=== PATIENT | male | born 1930 | race Caucasian/White ===

== ENCOUNTER → 2016-10-09 | Outpatient (CLI) | payer MEDICARE ==
[~2016-10-09] MED LIST: ASA 81MG; B12100 MC1; CALCIUM + VITA1 EAC2 PO; CALCIUM 600MG+D1 TAB; CENTRUM CARDIO; CENTRUM SILVER1 EACH PO; CINNAMON500 MG; CIPRO500 MG PO; CRANBERRY FRUIT; D-31000 IU; DAYPRO600 M1 PO; E-200200 UNIT PO; E400400 IU; ELIQUIS5 M1 PO; FENOFIBRATE MI134 MG PO; FEOSOL300 MG PO; FISH OIL CONC1000 M2 PO; FLOMAX0.4 MG PO; FOLGARD TABLET1 EACH PO; FUROSEMIDE40 MG PO; GABAPENTIN300 MG PO; GLIPIZIDE5 MG PO; KEFLEX500 MG PO; KLOR-CON M2020 ME1 PO; LASIX20 MG PO; LEVOTHYROXINE0.05 MG PO; LIPITOR80 MG; Lopressor25 MG PO; Lotrimin 1%15 GM T; MASON NATURAL500 MG PO; METFORMIN500 MG; METFORMIN500 MG PO; MICRO-K 1010 MEQ PO; NEURONTIN300 MG PO; NEURONTIN600 MG; NEURONTIN600 MG PO; NORCO 325 MG-51 TAB PO; OMEGA 3 120 MG-1 CAP; Percocet 325 MG1 TAB PO; SEA OMEGA 30 121 SGL; SYNTHROID,LEVO25 MCG PO; TOPROL XL50 MG; TRI COR; TYLENOL WITH CO1 TA1 PO; ULTRAM50 MG PO; VICODIN 5/500 505 MG PO; VICODIN 500 MG-1 TAB PO; VITAMIN C500 M6 PO; VITAMIN C500 MG; VITAMIN E200 UNI4 PO; ZITHROMAX Z PA250 MG PO; [UNRECOGNIZED DRUG - OTHER]; [UNRECOGNIZED DRUG - OTHER]
== END | disposition home or self-care (01) ==
LOC: US 11:15
DX: N39.0 Urinary tract infection, site not specified (principal)

== ENCOUNTER → 2017-02-26 | Outpatient (CLI) | payer MEDICARE ==
[2017-02-26 11:04] LABS: BASO % 0.3 % (0.0-1.0); EOS # 0.2 10*3/uL (0.0-0.4); EOS % 2.9 % (1.0-4.0); HEMATOCRIT 37.6 % (42.0-52.0); HEMOGLOBIN 12.1 g/dl (14.0-18.0); LYMPH # 1.6 10*3/uL (1.3-4.4); LYMPH % 27.9 % (27.0-41.0); MEAN CELL VOLUME 84.9 fl (80.0-94.0); MEAN CORPUSCULAR HGB 27.3 pg (27.0-31.0); MEAN CORPUSCULAR HGB CONC 32.2 g/dl (33.0-37.0); MEAN PLATELET VOLUME 8.4 fl (9.6-12.3); MONO # 0.7 10*3/uL (0.1-1.0); MONO % 12.1 % (3.0-9.0); NEUT # 3.3 10*3/uL (2.3-7.9); NEUT % 56.6 % (47.0-73.0); PLATELET COUNT AUTOMATED 211 10*3/uL (130-400); RED BLOOD COUNT 4.43 10*6/uL (4.50-5.90); RED CELL DISTRI WIDTH 14.9 % (0-14.5); WHITE BLOOD COUNT 5.9 10*3/uL (4.8-10.8)
[2017-02-26 11:31] LABS: ALBUMIN 3.5 gm/dl (3.1-4.5); ALKALINE PHOSPHATASE 130 U/L (45-117); BILIRUBIN, TOTAL 0.6 mg/dl (0.2-1.0); BUN 21 mg/dl (7-24); CARBON DIOXIDE 26 mmol/L (21-32); CHLORIDE 103 mmol/L (98-107); CHOLESTEROL 107 mg/dL (<200); EST GLOM FILT AFRICAN AMERICAN > 60 ml/min; FREE T4 1.07 ng/dl (0.76-1.46); GLUCOSE 144 mg/dL (65-99); HDL CHOLESTEROL 43 mg/dl (40-60); LDL CHOLESTEROL 36 mg/dL (9-159); SGOT/AST 18 IU/L (3-35); SGPT/ALT 22 U/L (12-78); SODIUM 141 mmol/L (136-145); TOTAL PROTEIN 7.6 gm/dL (6.4-8.2); TRIGLYCERIDES 139 mg/dl (<150); VLDL CHOLESTEROL 28 mg/dL (6-40)
== END | disposition home or self-care (01) ==
LOC: LAB 10:45
PROVIDERS: Internal Medicine
DX: E11.42 Type 2 diabetes mellitus with diabetic polyneuropathy (principal); E11.22 Type 2 diabetes mellitus with diabetic chronic kidney disease; N18.9 Chronic kidney disease, unspecified; E03.9 Hypothyroidism, unspecified

== ENCOUNTER → 2017-04-24 | Outpatient (CLI) | payer MEDICARE | END | disposition home or self-care (01) | LOC: US 13:29 | DX: S32.2XXA Fracture of coccyx, initial encounter for closed fracture (principal); X58.XXXA Exposure to other specified factors, initial encounter; Y93.89 Activity, other specified; Y92.89 Other specified places as the place of occurrence of the external cause; Y99.8 Other external cause status ==

== ENCOUNTER → 2017-10-30 | Outpatient (CLI) | payer MEDICARE ==
[2017-10-30 17:02] LABS: BASO % 0.3 % (0.0-1.0); EOS # 0.2 10*3/uL (0.0-0.4); EOS % 2.3 % (1.0-4.0); HEMATOCRIT 37.6 % (42.0-52.0); HEMOGLOBIN 12.2 g/dl (14.0-18.0); LYMPH % 28.4 % (27.0-41.0); MEAN CELL VOLUME 88.5 fl (80.0-94.0); MEAN CORPUSCULAR HGB 28.7 pg (27.0-31.0); MEAN CORPUSCULAR HGB CONC 32.4 g/dl (33.0-37.0); MEAN PLATELET VOLUME 8.8 fl (9.6-12.3); MONO # 0.8 10*3/uL (0.1-1.0); NEUT % 57.9 % (47.0-73.0); PLATELET COUNT AUTOMATED 221 10*3/uL (130-400); RED BLOOD COUNT 4.25 10*6/uL (4.50-5.90); RED CELL DISTRI WIDTH 14.4 % (0-14.5)
[2017-10-30 17:20] LABS: ALBUMIN 3.4 gm/dl (3.1-4.5); ALKALINE PHOSPHATASE 134 U/L (45-117); BUN 22 mg/dl (7-24); CHLORIDE 105 mmol/L (98-107); CHOLESTEROL 113 mg/dL (<200); CREATININE 1.07 mg/dL (0.70-1.30); HDL CHOLESTEROL 44 mg/dl (40-60); LDL CHOLESTEROL 38 mg/dL (9-159); POTASSIUM 4.4 mmol/L (3.5-5.1); SGOT/AST 19 IU/L (3-35); SGPT/ALT 23 U/L (12-78); SODIUM 139 mmol/L (136-145); TOTAL PROTEIN 7.4 gm/dL (6.4-8.2); TRIGLYCERIDES 154 mg/dl (<150); VLDL CHOLESTEROL 31 mg/dL (6-40)
== END | disposition home or self-care (01) ==
LOC: LAB 16:26
PROVIDERS: Internal Medicine
DX: E11.42 Type 2 diabetes mellitus with diabetic polyneuropathy (principal); E03.9 Hypothyroidism, unspecified; E78.00 Pure hypercholesterolemia, unspecified; R50.9 Fever, unspecified

== ENCOUNTER → 2017-11-06 | Outpatient (CLI) | payer MEDICARE | END | disposition home or self-care (01) | LOC: CARD 12:56 | DX: I25.10 Atherosclerotic heart disease of native coronary artery without angina pectoris (principal) ==

== ENCOUNTER → 2017-12-24 | Outpatient (CLI) | payer MEDICARE | END | disposition home or self-care (01) | LOC: CARD 00:29 | DX: I48.0 Paroxysmal atrial fibrillation (principal) ==

== ENCOUNTER → 2018-02-11 | Outpatient (CLI) | payer MEDICARE ==
[2018-02-11 16:46] LABS: INTERNATIONAL NORM RATIO 3.1 (2.0-3.5)
== END | disposition home or self-care (01) ==
LOC: LAB 01:16
PROVIDERS: Internal Medicine
DX: I48.2 Chronic atrial fibrillation (principal)

== ENCOUNTER → 2018-02-18 | Outpatient (CLI) | payer MEDICARE ==
[2018-02-18 16:59] LABS: INTERNATIONAL NORM RATIO 1.7 (2.0-3.5)
== END | disposition home or self-care (01) ==
LOC: LAB 16:25
PROVIDERS: Internal Medicine
DX: I48.2 Chronic atrial fibrillation (principal)

== ENCOUNTER 2018-03-10 20:36 | Emergency (ER) | payer MEDICARE ==
[~2018-03-10] VITALS: Ht 180.3 cm; Wt 99.8 kg
[2018-03-10 20:58] LABS: BASO % 0.3 % (0.0-1.0); EOS # 0.2 10*3/uL (0.0-0.4); HEMATOCRIT 39.3 % (42.0-52.0); HEMOGLOBIN 12.5 g/dl (14.0-18.0); LYMPH # 1.9 10*3/uL (1.3-4.4); LYMPH % 29.2 % (27.0-41.0); MEAN CELL VOLUME 88.5 fl (80.0-94.0); MEAN CORPUSCULAR HGB 28.2 pg (27.0-31.0); MEAN CORPUSCULAR HGB CONC 31.8 g/dl (33.0-37.0); MEAN PLATELET VOLUME 8.6 fl (9.6-12.3); MONO # 0.9 10*3/uL (0.1-1.0); MONO % 13.5 % (3.0-9.0); NEUT # 3.4 10*3/uL (2.3-7.9); NEUT % 53.4 % (47.0-73.0); PLATELET COUNT AUTOMATED 221 10*3/uL (130-400); RED BLOOD COUNT 4.44 10*6/uL (4.50-5.90); RED CELL DISTRI WIDTH 14.6 % (0-14.5); WHITE BLOOD COUNT 6.4 10*3/uL (4.8-10.8)
[2018-03-10] MEDS ORDERED: GLUCOPHAGE1000 MG PO (21:04)
[2018-03-10] MEDS ORDERED: TYLENOL EXTRA500 M2 PO (21:05)
[2018-03-10] MEDS ORDERED: 'KLONOPIN0.5 MG PO (21:05)
[2018-03-10 21:07] LABS: ACT PARTIAL THROMBO TIME 34.1 SECONDS (20.8-31.5); INTERNATIONAL NORM RATIO 3.1 (2.0-3.5)
[2018-03-10 21:15] LABS: ALBUMIN 3.6 gm/dl (3.1-4.5); ALKALINE PHOSPHATASE 120 U/L (45-117); BUN 23 mg/dl (7-24); CHLORIDE 104 mmol/L (98-107); CREATININE 1.09 mg/dL (0.70-1.30); POTASSIUM 3.7 mmol/L (3.5-5.1); SGOT/AST 21 IU/L (3-35); SGPT/ALT 25 U/L (12-78); SODIUM 139 mmol/L (136-145); TOTAL PROTEIN 7.5 gm/dL (6.4-8.2)
[2018-03-10 21:17] LABS: TROPONIN I < 0.015 ng/ml (<0.045)
== END 2018-03-10 22:45 | disposition home or self-care (01) ==
LOC: ED
PROVIDERS: Student in an Organized Health Care Education/Training Program
DX: S09.8XXA Other specified injuries of head, initial encounter (principal); I48.91 Unspecified atrial fibrillation; I25.10 Atherosclerotic heart disease of native coronary artery without angina pectoris; E11.9 Type 2 diabetes mellitus without complications; E78.00 Pure hypercholesterolemia, unspecified; Z90.89 Acquired absence of other organs; Z88.2 Allergy status to sulfonamides; Z79.899 Other long term (current) drug therapy; Z79.84 Long term (current) use of oral hypoglycemic drugs; W07.XXXA Fall from chair, initial encounter; Y93.89 Activity, other specified; Y92.098 Other place in other non-institutional residence as the place of occurrence of the external cause; Y99.8 Other external cause status

== ENCOUNTER 2018-11-16 08:56 | Emergency (ER) | payer OTHER, MEDICARE ==
[~2018-11-16] VITALS: Ht 182.8 cm; Wt 102.1 kg
[~2018-11-16 08:56] MED LIST changes: +'KLONOPIN0.5 MG PO; +B12,B-12,B 12500 MC1 PO; +COUMADIN4 M2 PO; +GLUCOPHAGE1000 MG PO; -LEVOTHYROXINE0.05 MG PO; +LEVOTHYROXINE75 MCG PO; -LIPITOR80 MG; +LIPITOR80 MG PO; +TYLENOL EXTRA500 M2 PO; +VITAMIN D-32000 UNIT PO
== END 2018-11-16 10:19 | disposition home or self-care (01) ==
LOC: ED 08:56
DX: M79.604 Pain in right leg (principal); M25.512 Pain in left shoulder; G89.29 Other chronic pain; M13.851 Other specified arthritis, right hip; I48.91 Unspecified atrial fibrillation; I25.10 Atherosclerotic heart disease of native coronary artery without angina pectoris; E11.40 Type 2 diabetes mellitus with diabetic neuropathy, unspecified; E78.00 Pure hypercholesterolemia, unspecified; E03.9 Hypothyroidism, unspecified; Z88.2 Allergy status to sulfonamides; Z79.84 Long term (current) use of oral hypoglycemic drugs; Z79.899 Other long term (current) drug therapy; W19.XXXA Unspecified fall, initial encounter; Y93.89 Activity, other specified; Y92.129 Unspecified place in nursing home as the place of occurrence of the external cause; Y99.8 Other external cause status

== ENCOUNTER 2019-02-18 19:19 | Inpatient (IN) | payer OTHER, MEDICARE ==
[~2019-02-18] VITALS: Ht 190.5 cm; Wt 94.5 kg
--- NOTE | ~2019-02-18 | PR ---
[place], [place] PROGRESS NOTE [id number] UNIT #: [id number] ROOM: 422 DOCTOR: GIANFRANCO OROPEZA DO BIRTHDATE: [birth year] DOS: 02/25/2019 PULMONARY PROGRESS NOTE INTERVAL HISTORY: The patient does not respond to questioning. The patient still has a chest tube placed on at this time, the patient appears comfortable. Nurse stated that the patient had a wet cough yesterday. The patient had a swallow study and was deemed to aspirate all consistencies and was therefore n.p.o. at this time. OBJECTIVE: VITAL SIGNS: Temperature is 98.7 with a T-max last night of 101, pulse 90, respiratory rate 20, blood pressure 118/76, pulse ox 96% on 4 liters by nasal cannula. HEENT: Normocephalic, atraumatic. Eyes nonicteric. NECK: Supple, nontender, trachea midline. CARDIOVASCULAR: S1, S2 are audible. LUNGS: Decreased breath sounds in the left lower lung. There are no crackles bilaterally. ABDOMEN: Soft, nontender. Bowel sounds are present. EXTREMITIES: The patient has no acute edema. MUSCULOSKELETAL: No acute changes. CENTRAL NERVOUS SYSTEM: No focal deficits. IMAGING: The patient had a modified barium swallow that showed aspiration. Chest x-ray performed yesterday showed persistent opacification in the mid and lower part of the hemothorax. LABORATORY DATA: White count is 16.5 today, hemoglobin 11.0, hematocrit 35.2, platelet count 308. Chemistries: Sodium 141, potassium 3.3, chloride 99, carbon dioxide 31, BUN 17, creatinine 1.2. IMPRESSION: 1. Pleural fluid. At this time, no further drainage, most likely loculated pleural fluid would be suspected. 2. Therapeutic INR at this time. 3. Cytology of pleural fluid is still pending, possibly this is a malignant process, but we have not confirmed this yet. 4. At this time, after the patient's modified barium swallow, the patient has been made n.p.o. due to severe pharyngeal phase dysphagia with absent pharyngeal swallow. PLAN: At this time, we will plan to take the chest tube out this morning. Continue any other therapy from a pulmonology standpoint. Overall, the patient's condition is guarded. From a pulmonary standpoint, we agree with palliative care/hospice consult. [place], [place] PROGRESS NOTE NAME: MICKY VALLEJO UNIT #: [id number] ROOM: [facility] DOCTOR: GIANFRANCO OROPEZA DO BIRTHDATE: [birth year] Danny Oropeza DO EVA SALGUERO MD CM:PNKATHERINE [id number] GIANFRANCO OROPEZA DO 02/25/19 1005 interface
--- NOTE | ~2019-02-18 | CON ---
[place], [place] REPORT OF CONSULTATION NAME: MICKY VALLEJO UNIT #: [id number] ROOM: 422 DOCTOR: GIANFRANCO OROPEZA DO BIRTHDATE: [birth year] DOS: 02/19/2019 PULMONARY CONSULTATION NOTE REASON FOR CONSULTATION: Left pleural effusion. REQUESTED BY: Hospitalist. HISTORY OF PRESENT ILLNESS: An 88-year-old male with dementia, was brought from [facility] for supratherapeutic INR. The patient also had a small lump on his back. Upon imaging in the ER, the patient was found to have a very large left pleural effusion that chris out the entire lung. Any other symptoms are unobtainable due to the patient's underlying dementia. PAST MEDICAL HISTORY: 1. Atrial fibrillation. 2. Anxiety. 3. BPH. 4. CAD. 5. Dementia. 6. Diabetes. 7. Hyperlipidemia. 8. Hypothyroidism. 9. Normocytic anemia. PAST SURGICAL HISTORY: 1. History of heart catheterization. 2. History of tonsillectomy. SOCIAL HISTORY: The patient denies alcohol consumption, tobacco use or drug use. FAMILY HISTORY: His father from heart disease. His mother from breast cancer. ALLERGIES: THE PATIENT IS ALLERGIC TO SULFONAMIDE ANTIBIOTICS. HOME MEDICATIONS: Atorvastatin, vitamin D and B12, gabapentin, glipizide, levothyroxine, metformin, Flomax and warfarin. REVIEW OF SYSTEMS: Unable to be obtained secondary to the patient's underlying dementia. PHYSICAL EXAMINATION: VITAL SIGNS: The patient's temperature is 99.3, pulse rate is 78, respiratory rate 14, blood pressure 122/72, pulse ox 98% on 3 liters. HEENT: Normocephalic, atraumatic. NECK: Supple, nontender, trachea midline. HEART: S1, S2 audible. LUNGS: No breath sounds over left lung worthy. Right lung field is clear. [place], [place] REPORT OF CONSULTATION NAME: MICKY VALLEJO UNIT #: [id number] ROOM: 422 DOCTOR: GIANFRANCO OROPEZA DO BIRTHDATE: [birth year] ABDOMEN: Soft, nontender, nondistended. EXTREMITIES: 2+ edema, bilateral lower extremities. No clubbing, cyanosis or erythema. NEUROLOGIC: Unable to assess fully. The patient does not respond appropriately to questioning. LABORATORY DATA: CBC: White count 8.1, hemoglobin 11.5, hematocrit 37.7, platelet count is 272. Chemistries: Sodium 138, potassium 3.4, chloride 98, carbon dioxide 31, BUN 15, creatinine 0.9, calcium 8.2, phosphorus 3.2, magnesium 1.4, T-bili 0.3, AST 18, ALT 9, alkaline phosphatase 117, total protein 7.5, albumin 1.5. INR was greater than 9.3 at 1 o'clock yesterday; however, at 5:00 a.m. this morning when repeat labs were done, the patient's INR was 2.8. IMAGING: CT chest, abdomen and pelvis, massive left effusion with collapse of the left lower lobe and some mediastinal shift to the right. There is significant bladder wall thickening and nodularity. ASSESSMENTS: 1. Pleural effusion. 2. Atrial fibrillation. 3. Supratherapeutic INR, this is now within normal limits. 4. Coronary artery disease. 5. Dementia. 6. Diabetes with long-term insulin use. TREATMENT PLAN: The patient's was contacted and is amenable to chest tube on the left. We will call once more to just discuss risks, benefits with the as the patient is not able to sign consent for himself. Otherwise, the patient is stable. The patient does not need an emergent chest tube at this time. One will likely be placed in the near future to not only analyze the fluid but to also help with comfort and decrease the patient's shortness of breath. Supratherapeutic INR will be managed by the hospitalist. Any other changes will be based on progression of illness. Danny Oropeza DO [place], [place] REPORT OF CONSULTATION NAME: MICKY VALLEJO [place] UNIT #: [id number] ROOM: [facility] DOCTOR: GIANFRANCO OROPEZA DO BIRTHDATE: [birth year] EVA SALGUERO MD CM:CONSTR:REPORT OF CONSULTATION 0849 03/06/19 0833 interface
--- NOTE | ~2019-02-18 | PR ---
[place], [place] PROGRESS NOTE NAME: MICKY VALLEJO [facility] #: [id number] UNIT #: [id number] ROOM: 422 DOCTOR: GIANFRANCO OROPEZA DO BIRTHDATE: [birth year] DOS: 02/20/2019 PULMONARY PROGRESS NOTE INTERVAL HISTORY: The patient is confused and unable to answer questions at this time. Underlying dementia. REVIEW OF SYSTEMS: Unable to obtain due to the patient's dementia. OBJECTIVE: VITAL SIGNS: Temperature 98.1, pulse 96, respiratory rate 18, blood pressure is 101/60. The patient is 93% on 3 liters by nasal cannula. HEENT: Normocephalic, atraumatic. Eyes nonicteric. NECK: Supple, nontender, trachea midline. CARDIOVASCULAR: S1, S2 audible. LUNGS: Absent breath sounds on the left. Clear to auscultation on the right. ABDOMEN: Soft, nontender, bowel sounds present. EXTREMITIES: Without any acute edema, clubbing, or cyanosis. MUSCULOSKELETAL: No acute or obvious deformities. CRANIAL NERVOUS SYSTEM: Cannot be assessed. LABORATORY DATA: Of choice, the INR is 1.9 today, no other major deficits. The patient is malnourished with an albumin of 1.5. ASSESSMENT: 1. Coagulopathy, supratherapeutic INR, secondary to warfarin. The patient was given vitamin K at the [facility], which has worked quite nicely. 2. Large left pleural effusion. 3. Dementia. 4. 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 5. Type 2 diabetes. PLAN: At this time, we will plan to put a chest tube in potentially today. INR is within range at this time. The patient's spouse was contacted yesterday and she agrees with this plan. Her only concern is that the patient may not tolerate the chest tube and may want to remove or may pull it out himself due to his underlying dementia. We will proceed with a chest tube and if the patient does not tolerate Aleve, we will address the situation based on the patient's actions. No antibiotics at this time. Hold warfarin today. Thank you for allowing us to participate in the patient's care. Any additional changes will be based on progression of illness. Danny Oropeza DO [place], [place] PROGRESS NOTE NAME: MICKY VALLEJO UNIT #: [id number] ROOM: [facility] DOCTOR: GIANFRANCO OROPEZA DO BIRTHDATE: [birth year] EVA SALGUERO MD CM:BIJAN 08 GIANFRANCO OROPEZA DO 02/20/19 2245 interface
--- NOTE | ~2019-02-18 | PR ---
[place], [place] PROGRESS NOTE NAME: MICKY VALLEJO [facility] #: [id number] UNIT #: [id number] ROOM: 422 DOCTOR: NOEMY KNOX MD,EVA BIRTHDATE: [birth year] DOS: 02/24/2019 PULMONARY PROGRESS NOTE SUBJECTIVE: The patient was seen and examined with [id number] encounter. History was confirmed. Labs were reviewed. Physical examination was performed. Assessment and management of today's note was personally completed. The patient remains in the hospital. The patient has a chest tube in place. He has not been noted any ongoing acute respiratory complaints at the present time. He appears to be comfortable. He has not been noted with any chest pain. The patient does not have any verbal communication. Chest tube yesterday was corrected for this patient again, but there was no fluid drainage noted further after that. OBJECTIVE: VITAL SIGNS: Noted as temperature normal, respiratory rate 20, heart rate 101, blood pressure 117/72. Pulse oxygen saturation was recorded as 98% saturation on 3 liters nasal cannula. HEENT: Shows head was atraumatic, eyes nonicterus. CARDIOVASCULAR: S1 and S2 audible. LUNGS: Decreased breath sounds in the left lower lung. There were no crackles. ABDOMEN: Soft, nontender. Bowel sounds present. EXTREMITIES: The patient was noted without any acute edema. MUSCULOSKELETAL: No acute change. CENTRAL NERVOUS SYSTEM: No focal deficit noted. The patient is noted to be awake and alert. LABORATORY AND DIAGNOSTIC DATA: CBC: WBC count 11.8, hemoglobin 10.1, platelet count 275,000. BMP this morning, glucose 151, BUN normal, creatinine normal, potassium 3.2. Chest x-ray that was done this morning shows left pleural fluid noted with pulmonary infiltrates. IMPRESSION: 1. Pleural fluid. At this time, no further drainage noted. Most likely, loculated pleural fluid would be suspected. 2. Therapeutic INR noted at the present time. Cytology of the pleural fluid is still pending and not available. Possibility of malignant process has been considered at this time, but cannot be confirmed as yet. PLAN OF MANAGEMENT: Continuation of the current therapy at the present time with chest tube remains in place. If the chest tube continues to show recurrent pleural fluid, chest tube might need to be removed. Continue other therapy, plan of management, care plan and treatment otherwise. Usual care. [place], [place] PROGRESS NOTE NAME: MICKY VALLEJO UNIT #: [id number] ROOM: 422 DOCTOR: EVA SCOTT MD BIRTHDATE: [birth year] EVA SALGUERO MD CM:PNTRANS [id number] EVA KNOX MD 02/25/19 0202 interface
--- NOTE | ~2019-02-18 | PROC NOTE ---
[place], [place] PROCEDURE NOTE NAME: [facility]KY VALLEJO [facility] #: [id number] UNIT #: [id number] ROOM: 422 DOCTOR: NOEMY KNOX MD,EVA BIRTHDATE: [birth year] DOS: 02/20/2019 PROCEDURE: Chest tube thoracostomy. The note done by the electromedical equipment repairer this morning for the patient's chest tube thoracostomy was personally supervised directly for the chest tube. DESCRIPTION OF PROCEDURE: A 20-[place] chest tube was inserted with the Seldinger technique into the right pleural space without any difficulty. The patient was noted with mildly hemorrhagic pleural fluid, which was noted from the chest tube. The initial drainage of the pleural fluid was done as 1200 mL. Chest tube was clamped, will be relieved to suction on gravity drainage in 30 minutes and then after that to be kept on the gravity drainage for 2 hours prior to starting on the suction. I believe the patient was noted with very large volume of the pleural fluid that will be drained because of the complete opacification of the left hemithorax. EVA SALGUERO MD CM:PROCNOTE:PROCEDURE NOTE [id number] EVA KNOX MD
--- NOTE | ~2019-02-18 | PR ---
[place], [place] PROGRESS NOTE NAME: MICKY VALLEJO [facility] #: [id number] UNIT #: [id number] ROOM: 422 DOCTOR: NEOMY KNOX MD,EVA BIRTHDATE: [birth year] DOS: 02/22/2019 PULMONARY PROGRESS NOTE SUBJECTIVE: The patient was noted comfortable at this time. His is present in the room with the patient. The chest tube remains on the left hemithorax and has been noted drainage of pleural fluid, 270 mL of pleural fluid drainage noted, which noted serosanguineous. He has not been noted in any acute distress this morning of assessment. The patient remains in the hospital at the present time. He is unable to give me any history by himself as well. OBJECTIVE: VITAL SIGNS: For the patient which were recorded showed the temperature noted as normal. The respiratory rate recorded as 18, heart rate 82, blood pressure 125/60-129/64. Pulse oxygen saturation recorded on 3 liters nasal cannula 100% saturation. HEENT: Examination shows head was atraumatic. Eyes nonicterus. NECK: Supple. CARDIOVASCULAR: S1, S2 is audible. LUNGS: The patient was noted with clear worthy on the right side. The left chest air entry of the lung was also improving. There were no crackles heard. ABDOMEN: Soft, nontender. Bowel sounds present. EXTREMITIES: No acute change. LABORATORY DATA: The patient's chest x-ray done this morning was reviewed, showed further improvement in the aeration in the lung was noted with a small area of infiltration in the left lower lung. The PT/INR noted 1.5, which is therapeutic. BMP this morning, normal BUN and creatinine. CBC this morning, WBC count 8.9, hemoglobin 9.5, hematocrit 29.5, platelet count 214,000. Culture of the pleural fluid noted as no bacterial growth. IMPRESSION: The patient who has been currently noted with stable respiratory status, pending cytology of pleural fluid, which is noted with exudative lymphocyte-predominant pleural fluid. Strong possibility of malignant pleural effusion. PLAN OF TREATMENT: No changes in plan of management. Further assessment has been discussed with the patient's spouse at this time. No change in the treatment will be necessary. Decision about the further medical management will be made after availability of the pleural fluid cytology report by next week. [place], [place] PROGRESS NOTE NAME: MICKY VALLEJO UNIT #: [id number] ROOM: 422 DOCTOR: EVA SCOTT MD BIRTHDATE: [birth year] EVA SALGUERO MD CM:PNTRANS [id number] EVA KNOX MD 02/22/19 2329 interface
--- NOTE | ~2019-02-18 | PR ---
[place], [place] PROGRESS NOTE NAME: MICKY VALLEJO [facility] #: [id number] UNIT #: [id number] ROOM: 422 DOCTOR: NOEMY KNOX MD,EVA BIRTHDATE: [birth year] DOS: 02/21/2019 PULMONARY PROGRESS NOTE SUBJECTIVE: The patient independently seen and examined in toce-gu-mvge encounter, history was confirmed. Physical examination was performed. The lab was reviewed. Assessment and management of today's note was personally completed. Note done by the medical equipment sales was approved as well. The patient was noted awake and alert. The patient does not have verbal communication because of history of dementia. The chest tube inserted yesterday successfully and noted large volume of pleural fluid drainage over 3000 mL of pleural fluid. Fluid noted hemorrhagic as well. He has not been noted any acute hemodynamic instability at the present time. PHYSICAL EXAMINATION: GENERAL: The patient is noted comfortable at this time, lying in the bed, noted awake and alert. VITAL SIGNS: Recorded normal temperature, respiratory rate 18, heart rate 86, blood pressure 123/84. Pulse oxygen saturation recorded as 99% saturation on 3 liters nasal cannula. HEENT: Shows head was atraumatic. Eyes nonicterus. NECK: Supple. CARDIOVASCULAR: S1, S2 is audible. LUNGS: The patient was noted improvement in air entry in the left lung, partially. There were no wheezing or crackles. ABDOMEN: Soft, nontender. EXTREMITIES: No acute edema. MUSCULOSKELETAL: No deformities. CENTRAL NERVOUS SYSTEM: Limited examination. The patient noted awake and alert. LABORATORY DATA: Reviewed from yesterday. The glucose noted in the pleural fluid 148. The pH of 7.37. LDH 238, cholesterol 58. Albumin 1.5, amylase of 60, triglycerides 42. Cell differential of the pleural fluid noted 617 WBC with 86% lymphocytes. The cytology of the pleural fluid was pending. CMP that was done this morning as BUN 25, creatinine 1.49, glucose 190. The PT/INR subtherapeutic. The CBC; WBC count 8.4, hemoglobin 11.1, hematocrit was noted as 35 with a platelet count 262,000. The chest x-ray that was done this morning was reviewed shows partial improvement in aeration of the lung. Hydropneumothorax was not noted. The lung was not completely expanded. Possibility of mass, lesion, atelectasis in the left lower lobe cannot be excluded. Midline shift has been corrected in the right lung. The patient was noted with evidence of small right pleural effusion. IMPRESSION: 1. The patient with a large pleural fluid noted lymphocyte-predominant, exudative effusion, most likely underlying due to malignancy very likely cause. 2. The patient with hydropneumothorax because of the trapped lung. 3. The patient with INR, which is noted currently subtherapeutic. 4. Atrial fibrillation. [place], [place] PROGRESS NOTE [id number] UNIT #: [id number] ROOM: [facility] DOCTOR: NOEMY KNOX MD,EVA BIRTHDATE: [birth year] 5. The patient with increased BUN and creatinine, most likely intravascular volume depletion with large volume fluid drainage. PLAN OF THERAPY: The patient could be given intravenous fluids at this time, could be also started on the Coumadin as well. Other additional treatment changes will be made based on progression of the illness. Pleural fluid continued to be drained at this time. Monitoring of the chest x-ray will be done continuously. Cytology of pleural fluid will be monitored. EVA SALGUERO MD CM:PNKATHERINE [id number] EVA KNOX MD 02/22/19 0314 interface
--- NOTE | ~2019-02-18 | PR ---
[place], [place] PROGRESS NOTE NAME: MICKY VALLEJO [facility] #: [id number] UNIT #: [id number] ROOM: 422 DOCTOR: NOEMY KNOX MD,EVA BIRTHDATE: [birth year] DOS: 02/25/2019 SUBJECTIVE: The patient independently seen and examined in mmoa-db-waau encounter, history was confirmed. Physical examination was performed. Lab work reviewed. Assessment and management of the patient for today's visit was personally completed. Note done by the caregivers non medical was approved. The patient has been noted comfortable at this time without any acute distress, had been noted with normal swallowing with oropharyngeal dysphagia. He was not noted in any distress this morning. He does not have any verbal communication because of history of dementia, but did appear to be comfortable, lying in the bed this morning of assessment. OBJECTIVE: VITAL SIGNS: Noted a normal temperature. Respiratory rate of 20, heart rate of 90, blood pressure of 111/70. Pulse oxygen saturation recorded on 4 liters nasal cannula at 93% saturation. No further drainage from the chest tube was noted. HEENT: Head was atraumatic. Eyes nonicterus. NECK: Supple. CARDIOVASCULAR: S1, S2 audible. LUNGS: The patient was noted with decreased breath sounds on the left side of the chest. ABDOMEN: Soft, nontender. Bowel sounds present. EXTREMITIES: Without acute edema. MUSCULOSKELETAL: Without acute deformities. CENTRAL NERVOUS SYSTEM: The patient appeared to be awake and alert. Further exam cannot be performed. LABORATORY DATA: Cytology of pleural fluid, which was sent on the 02/24/2019, the first specimen was not processed. There was noted a benign finding. There was no evidence of malignancy. CBC that was done this morning WBC count 16.5, hemoglobin 11, platelet count was normal. PT/INR was noted as therapeutic 2.9. The chest x-ray done this morning shows small pleural fluid noted with area of atelectasis, clearing noted since previous examination. Right lung was clear. IMPRESSION: 1. The patient has been currently noted with lymphocyte-predominant pleural fluid. Certainly the possible consideration remains still as a malignant process as primary etiology. The patient currently with lymphocyte-predominant pleural fluid. Negative cytology does not exclude malignancy in 70% of the patients. 2. Leukocytosis, etiology unclear. 3. Therapeutic anticoagulation was noted. 4. Dementia. 5. Oropharyngeal dysphagia. PLAN OF MANAGEMENT: Chest tube of the patient will be removed this morning. Further conservative management for the patient will be ordered. If the pleural fluid recurs, the patient will be recommended about PleurX catheter drainage if necessary. Continue other therapy, plan of management. Discharge planning [place], [place] PROGRESS NOTE NAME: MICKY VALLEJO UNIT #: [id number] ROOM: 422 DOCTOR: EVA SCOTT MD BIRTHDATE: [birth year] could be started from pulmonary standpoint. EVA SALGUERO MD CM:PNTRANS [id number] EVA KNOX MD 02/26/19 0633 interface
--- NOTE | ~2019-02-18 | PR ---
[place], [place] PROGRESS NOTE NAME: MICKY VALLEJO UNIT #: [id number] ROOM: 422 DOCTOR: EVA SCOTT MD BIRTHDATE: [birth year] DOS: 02/23/2019 PULMONARY PROGRESS NOTE SUBJECTIVE: The patient was noted comfortable at this time, resting on the bed, has been assisted for feeding by the spouse at the bedside. Patient not showing any signs of respiratory distress, has not been noted any acute other symptoms this morning of assessment. The patient is nonverbal because of history of dementia. OBJECTIVE: VITAL SIGNS: Normal temperature, respiratory rate is 18, heart rate is 94, blood pressure is 112/56 recorded this morning. The pulse oxygen saturation is 97% saturation with 2 liters nasal cannula. HEENT: Examination shows head was atraumatic. Eyes nonicterus. NECK: Supple. CARDIOVASCULAR SYSTEM: S1, S2 is audible. LUNGS: Noted without any wheezing or crackles. ABDOMEN: Soft, nontender. Bowel sounds present. EXTREMITIES: Without any acute edema. MUSCULOSKELETAL: No acute change. LABORATORY DATA: The PT and INR today were noted as 1.9. IMPRESSION: The patient with a massive pleural fluid in the left side; currently, has a chest tube in place as well, pending cytology, lymphocyte predominant pleural fluid. Chest tube drainage has been slowing down. PLAN OF MANAGEMENT: Order a chest x-ray for tomorrow morning. Await the cytology results. Chemical pleurodesis would be considered at the bedside. Other therapy, plan of management. Additional treatment changes will be ordered based on the progression of the illness. Chest x-ray done this morning was noted with a small area of atelectasis in left lower lobe. [place], [place] PROGRESS NOTE NAME: MICKY VALLEJO UNIT #: [id number] ROOM: 422 DOCTOR: EVA SCOTT MD BIRTHDATE: [birth year] EVA SALGUERO MD CM:PNTRANS 1324 [id number] EVA KNOX MD 03/06/19 0836 interface
--- NOTE | ~2019-02-18 | CON ---
[place], [place] REPORT OF CONSULTATION NAME: MICKY VALLEJO UNIT #: [id number] ROOM: 422 DOCTOR: NOEMY KNOX MDEVA BIRTHDATE: [birth year] DOS: 02/19/2019 PULMONARY CONSULTATION, EVALUATION AND MANAGEMENT CONSULTATION REQUESTED BY: Hospitalist service. REASON FOR CONSULTATION: For assessment of current pleural fluid on the left side appeared to be large. The consultation was done after reviewed the medical record of this hospitalization, physician notes and others. The patient unable to give any history because of history of chronic dementia. The patient was independently seen and examined in [id number] encounter, history was confirmed. Physical examination performed. Labs reviewed. Assessment and management today visit for the consultation were personally completed. Note done by the medical science liaison was approved as well. HISTORY OF PRESENT ILLNESS: This is an 88-year-old elderly male patient with history of chronic long-term atrial fibrillation brought to the hospital has been noted with change in mental status as well as symptoms reported with increased shortness of breath as well. The patient has been noted with gradual deterioration of the respiratory status slowly. He has been brought to the hospital. Further history could not be obtained at the present time except the patient has a chest x-ray done on this hospitalization noted with large pleural fluid opacification of the left lung. The patient's code status has been determined as a comfort care as well. REVIEW OF SYSTEMS: Could not be performed since the patient currently has dementia, unable to have verbal interaction. PAST MEDICAL HISTORY: Reported: 1. Coronary artery disease. 2. Atrial fibrillation. 3. Cardiac dysrhythmia. The patient was requiring pacemaker, but deferred because his overall multiple medical problems, not noted as a good candidate for that as noted in the history by the medical science liaison. 4. History of coronary artery disease. 5. History of chronic dementia. 6. longterm residency. 7. Type 2 diabetes mellitus. 8. Diabetic neuropathy. 9. Hyperlipidemia. 10. History of frequent falls. 11. Hypothyroidism. 12. Impaired ambulation. 13. Osteoarthritis of the major joints. 14. History of third-degree heart block. PAST SURGICAL HISTORY: Reported: 1. Tonsillectomy. 2. Cardiac catheterization. [place], [place] REPORT OF CONSULTATION NAME: MICKY VALLEJO UNIT #: [id number] ROOM: [facility] DOCTOR: NOEMY KNOX MD,EVA BIRTHDATE: [birth year] SOCIAL HISTORY: Noted nontobacco use lifetime. Denies history of alcohol use or illicit drug use. Supportive family. Both parents have been . Father with complication of coronary artery disease. Mother with complication of breast cancer. MEDICATIONS: Medications from nursing facility were noted as: 1. Tylenol. 2. Lipitor. 3. Calcium with vitamin D. 4. Klonopin. 5. Vitamin B12. 6. Depakote. 7. Cymbalta. 8. Lasix. 9. Sliding scale insulin coverage with NovoLog. 10. Levothyroxine. 11. Namenda. 12. Metformin. 13. [place] 3. 14. Potassium chloride. 15. Exelon patch. 16. Flomax. 17. Coumadin. DRUG ALLERGY HISTORY: REPORTED ALLERGIES TO: 1. SULFA DRUGS. 2. KEFLEX. PHYSICAL EXAMINATION: GENERAL: This is an 88-year-old elderly male patient who has been currently noted awake and alert without any acute distress for this morning of assessment in the Emergency Room. Height recorded as 6 feet 3 inches, weight of 210 pounds, BMI 26. VITAL SIGNS: Noted normal temperature 99.2 degree Fahrenheit, respiratory rate 20-17, heart 76-88, blood pressure 124/65-132/83. Pulse oxygen saturation was recorded on 3 liters nasal canula as 98% on presentation in the Emergency Room and 88% at rest on room air. HEENT: Head was atraumatic. Eyes, nonicterus. NECK: Supple. Oral mucosa was dry. CARDIOVASCULAR SYSTEM: S1, S2 audible. LUNGS: Noted absent breath sounds, left chest auscultation. ABDOMEN: Soft, nontender. Bowel sounds present. EXTREMITIES: Noted without any acute edema, clubbing or cyanosis. MUSCULOSKELETAL: Noted without any acute obvious deformities. CENTRAL NERVOUS SYSTEM: Cannot be assessed. LABORATORY DATA: Assessed for this patient. PT/INR that was done yesterday as INR greater than 9.3. PT/INR that was done on 02/18/2019 was recorded as INR of greater than 9.3. This was done as an outpatient. The PTT, which was done [place], [place] REPORT OF CONSULTATION NAME: MICKY VALLEJO UNIT #: [id number] ROOM: 422 DOCTOR: NOEMY KNOX MD,[facility] BIRTHDATE: [birth year] later on in the Emergency Room noted 61.2. The BMP that was done in the ER noted normal BUN and creatinine. The CBC that was done yesterday in the Emergency Room has hemoglobin 11, WBC count normal, platelet count was normal. The repeat INR this morning was noted as 2.8, PTT 42. CMP of the patient this morning was done, normal BUN and creatinine, glucose 54. Potassium 3.4. Albumin 1.5, magnesium 1.5, with otherwise normal LFTs. Chest x-ray shows complete opacification of the left lung. CT scan of chest, which was done without contrast in the Emergency Room was also personally reviewed, was noted with a large left-sided pleural fluid, complete atelectasis of the left lung, mild right mediastinal shift. IMPRESSION: 1. The patient who has been currently admitted to the hospital initially abnormal anticoagulation also not doing well. On admission noted with a large left-sided pleural fluid with acute hypoxic respiratory failure. Pulse ox saturation 88% in the Emergency Room and with the 2 liters of oxygen supplementation, saturation improved to normal. The patient does have signs of respiratory distress. Differential recurrent large pleural fluid certainly would be considered had malignant pleural fluid. Possibility infection and other etiology remains in consideration on to further investigated. 2. History of chronic dementia as well. 3. History of cardiac dysrhythmia including AV block was not noted a suitable candidate for the pacemaker. 4. Abnormal coagulation with rapid improvement at this time. I am unable to explain unless the lab data has occurred. The patient has been assessed and inquired from the pharmacy staff has not been given any vitamin K and also for the blood bank history has not received any FFP or other infusion prior resulting in rapid improvement in the INR, PTT. The LFTs also noted as normal surprising that does not explain the patient abnormal PT and PTT. 5. History of type 2 diabetes mellitus and multiple medical problems including hypothyroidism. PLAN OF MANAGEMENT: The patient will be planned for chest tube insertion possibly tomorrow. The INR continued to be awaited until noted at the subtherapeutic range as well to prevent any bleeding complication. The case has been discussed by medical science liaison. Consent for the chest tube insertion was approved from the patient's spouse. In the meantime, conservative medical management will be continued including oxygen support. Other therapy, plan of management look for any sources of infection as well and treat infection if confirmed. There was no need to start the patient's antibiotic because currently afebrile status and evidence of any lack of leukocytosis. Other therapy, plan of management at this time. Investigation further will be continued abnormal coags as well noted on admission and to determine in its etiology. The patient noted chronic anticoagulation at the nursing facility given in the form of the Coumadin. Thanks for allowing me to participate in care of this patient. [place], [place] REPORT OF CONSULTATION NAME: MICKY VALLEJO Renetta UNIT #: [id number] ROOM: 422 DOCTOR: EVA SCOTT MD BIRTHDATE: [birth year] EVA SALGUERO MD CM:CONSTR:REPORT OF CONSULTATION 1808 03/06/19 0835 interface
--- NOTE | ~2019-02-18 | PR ---
[place], [place] PROGRESS NOTE NAME[id number] UNIT #: [id number] ROOM: 422 DOCTOR: GIANFRANCO OROPEZA DO BIRTHDATE: [birth year] DOS: 02/21/2019 PULMONARY PROGRESS NOTE INTERVAL HISTORY: The patient does not respond to questioning. However, the patient is not in any acute distress. Chest tube is still present. Any other review of systems cannot be performed. OBJECTIVE: VITAL SIGNS: The patient's temperature is noted to be 98.7, pulse rate 78, respiratory rate 16, blood pressure 124/88, patient is 96% on 3 liters by nasal cannula. HEENT: Normocephalic, nontraumatic. Eyes nonicteric. NECK: Supple, nontender, trachea midline. CARDIOVASCULAR: S1, S2 audible. LUNGS: The patient was noted to have decreased breath sounds in the left lower base. The patient has got a left-sided chest tube in place. CDI around dressing. ABDOMEN: Soft, nontender. Bowel sounds present. EXTREMITIES: Without any acute edema. MUSCULOSKELETAL: Without any acute deformities. LABORATORY DATA: Fluid from the pleura is noted to be exudative by Light's criteria with a LDH of 238 and a serum LDH of 209, pleural hemorrhagic as well. The patient's INR was noted to be 1.3 today. ASSESSMENT: 1. Massive left pleural effusion, etiology undetermined. 2. Mediastinal shift. 3. Low grade fever. 4. Hypercoagulability secondary to atrial fibrillation, INR was greater than 9 before coming to the hospital, now it is subtherapeutic at 1.3. PLAN: Chest tube was placed, over 3 liters, have been removed since placement. The fluid is exudative. The fluid is concerning for a malignant process, however, the pneumonia is still on differential. Coumadin to be restarted per Pulmonology standing as chest tube is secured. Chest x-ray from this morning showed a partially reexpanded lung. There is an area laterally that lung may not reexpand. There is some fluid left in the left lower base. Continue suction at 20 mL/water. The patient also may have a trapped lung with longstanding effusion. Any other changes will be based on progression of illness. Danny Oropeza DO [place], [place] PROGRESS NOTE NAME: MICKY VALLEJO Renetta UNIT #: [id number] ROOM: [facility] DOCTOR: GIANFRANCO OROPEZA DO BIRTHDATE: [birth year] EVA SALGUERO MD CM:PNKATHERINE [id number] GIANFRANCO OROPEZA DO 02/22/19 1347 interface
--- NOTE | ~2019-02-18 | PR ---
[place], [place] PROGRESS NOTE NAME[id number] UNIT #: [id number] ROOM: 422 DOCTOR: NOEMY KNOX MD,EVA BIRTHDATE: [birth year] DOS: 02/20/2019 PULMONARY PROGRESS NOTE The patient was noted comfortable at this time, resting on the bed. He was seen in [id number] encounter, history was confirmed. Physical examination performed. The lab was reviewed. ASSESSMENT: The patient today's visit were personally completed this morning. The note done by the medical data analyst approved as well. The patient remains awake and alert. The patient has been admitted to the hospital from the Emergency Room to the fourth floor. Not showing any signs of respiratory distress. The of the patient was agreeable for the chest tube insertion, which was planned to be done today. He has not been noted with any verbal communication because of history of dementia, does not show any obvious distress. REVIEW OF SYSTEMS: Could not be performed. OBJECTIVE: VITAL SIGNS: For the patient, the temperature noted low grade 100.2 degrees Fahrenheit to normal temperature in the last 24 hours, respiratory rate of 18, heart rate of 96, blood pressure 160-124/60. The pulse oxygen saturation, which was recorded as the pulse oxygen saturation 95% on 3 liters cannula. HEENT: Head was atraumatic. Eyes nonicterus. NECK: Supple. CARDIOVASCULAR: S1, S2 audible. LUNGS: The patient was noted absent breath sounds on the left side as previously. ABDOMEN: Soft, nontender. Bowel sounds present. EXTREMITIES: Without any acute edema. MUSCULOSKELETAL: Without acute deformities. LABORATORY DATA: There was no PT/INR done this morning. The PT/INR yesterday noted 1.9, which was at subtherapeutic. IMPRESSION: The patient with massive left pleural fluid, etiology undetermined. Low-grade fever. Differential of pneumonia with malignant process. The remains in consideration. The patient did not show any severe or acute respiratory distress. PLAN OF TREATMENT: Will be planned for chest tube insertion to be done today. The case was discussed with the patient and . INR noted subtherapeutic as I ____ was given antibiotic medication at [facility] prior to admission to the hospital by the primary care physician. [place], [place] PROGRESS NOTE NAME: MICKY VALLEJO UNIT #: [id number] ROOM: 422 DOCTOR: EVA SCOTT MD BIRTHDATE: [birth year] EVA SALGUERO MD CM:BIJAN [id number] EVA KNOX MD 02/20/19 1605 interface
--- NOTE | ~2019-02-18 | PROC NOTE ---
[place], [place] PROCEDURE NOTE NAME: MICKY VALLEJO UNIT #: [id number] ROOM: 422 DOCTOR: RACHID HAILE BIRTHDATE: [birth year] DOS: MODIFIED BARIUM SWALLOW MEDICAL HISTORY: The patient is familiar to the speech therapy department as he is on case load and seen at bedside this morning. He was administered sips of liquid via cup and he demonstrated significant difficulty coughing and clearing his throat with very wet gurgly vocal quality. The nurse was called into the room and he was eventually able to cough and throat clearing. She used oral suctioning to help him clear. She auscultated, the patient did not change color, refer to nurse's note for status and it was recommended that he be n.p.o. with modified barium swallow to determine safety of diet and to determine if aspiration. The patient has a primary diagnosis of pleural effusion with a history of anxiety, CHF, dementia, AFib. He was currently on a pureed diet with thin liquids; however, again and it was recommended he be n.p.o. this morning due to bedside assessment. METHODS AND MATERIALS: The patient required maximum assist. He was on a gurney to prop him up to close to the 90-degree angle as possible. He was viewed in the lateral plane and the study was done in conjunction with radiologist, Dr. Gomez. The patient was unable to feed himself and unable to follow any simple commands. The patient is not oriented and is not able to answer simple questions or make his needs known at this time. He appears to be very confused. ORAL PHASE: The patient was administered approximately one quarter teaspoon of applesauce mixed with barium in which he demonstrated attempt to orally manipulate and form a bolus, but was unable to. Therefore, another quarter to half teaspoon of applesauce mixed with barium was administered in which he had very slow ability to manipulate and form a bolus. Bolus cohesion was severely reduced and he was slowly able to transfer the applesauce and barium back to the posterior portion of the oral cavity in which it passively fell very slowly into the vallecula where it filled the vallecula and this took approximately 10 seconds. At approximately 11 seconds, the pharyngeal swallow was triggered and there was moderate residue throughout the oral cavity and over the base of the tongue. PHARYNGEAL PHASE: The pharyngeal phase elevation anterior laryngeal movement as well as contraction, a very trace amount was passed through the cricopharyngeus most or at least 95% of the bolus remained in the vallecula, which was severe vallecular residue. The patient did not cough or throat clear; however, he demonstrated significant wet vocal quality. The patient was left upright and it was recommended that he remain upright with nursing to monitor and suction orally as needed and to monitor the patient. This was done via telephone to the nurse. It was also recommended the patient be n.p.o. to the nurse. RECOMMENDATION AND IMPRESSION: It is recommended that the physician consider nonoral means of nutrition, hydration as the patient has an absent swallow, which is beyond 10 seconds for the trigger of the pharyngeal phase. He has severe oral dysphagia and severe pharyngeal dysphagia. The patient's laryngeal elevation and contraction of the pharynx were severely limited. The patient [place], [place] PROCEDURE NOTE NAME: MICKY VALLEJO UNIT #: [id number] ROOM: 422 DOCTOR: RACHID HAILE BIRTHDATE: [birth year] does not appear to be a candidate for therapy at this time as he is unable to follow simple commands. If the patient's cognitive status unimproved, he need be assessed and considered for some thermal stimulation or compensatory strategy techniques, but at this time, he is not able to cooperate. Thank you for this referral. RACHID HAILE CM:PROCNOTE:PROCEDURE NOTE [id number] RACHID HAILE
--- NOTE | ~2019-02-18 | PROC NOTE ---
[place], [place] PROCEDURE NOTE NAME: [id number] UNIT #: [id number] ROOM: 422 DOCTOR: GIANFRANCO OROPEZA DO BIRTHDATE: [birth year] DOS: 02/20/2019 CHEST TUBE PLACEMENT NOTE INDICATIONS: Large left-sided pleural effusion. DESCRIPTION OF THE PROCEDURE: Time-out was performed, identifying the proper patient, procedure, and site. A bedside ultrasound was used to localize an optimal window for tube placement and the site was marked, prepped and draped in the usual sterile fashion. A 1% lidocaine was used to anesthetize the skin down to the pleura along the proposed line of insertion. An 18-gauge needle with syringe attached was introduced into the pleural space with aspiration of fluid to verify placement. A guidewire was then advanced into the pleural space. The needle was withdrawn and a 0.5 cm incision was made through the skin and subcutaneous tissues were dilated. A 20-gauge Bulgarian chest tube was then inserted into the pleural space. Fluid was collected and sent to the lab. The chest tube was then immediately connected to the pleural evacuator. The tube was sutured in place and a pursestring suture was also placed around the chest tube insertion site and the dressings were applied. The patient tolerated the procedure well. Estimated blood loss less than 5 mL. There were no complications. Chest x-ray was ordered to verify placement as well as to ensure that there are no complications. Chest tube was placed to water seal. After the first 1000 mL came out, the chest tube was clamped. The nurses were informed to open the chest tube to gravity after 30 minutes had elapsed and then after another [address] the water seal at 20 mm of water to suction. Danny Oropeza DO EVA SALGUERO MD CM:PROCNOTE:PROCEDURE NOTE [id number] GIANFRANCO OROPEZA DO
[2019-02-18 19:19] VITALS: BP 124/65
[2019-02-18 19:52] LABS: BASO % 0.3 % (0.0-1.0); EOS # 0.1 10*3/uL (0.0-0.4); HEMATOCRIT 34.9 % (42.0-52.0); LYMPH % 22.5 % (27.0-41.0); MEAN CELL VOLUME 88.1 fl (80.0-94.0); MEAN CORPUSCULAR HGB 27.8 pg (27.0-31.0); MEAN CORPUSCULAR HGB CONC 31.5 g/dl (33.0-37.0); MEAN PLATELET VOLUME 8.4 fl (9.6-12.3); MONO # 1.3 10*3/uL (0.1-1.0); MONO % 15.1 % (3.0-9.0); NEUT # 5.2 10*3/uL (2.3-7.9); NEUT % 60.3 % (47.0-73.0); PLATELET COUNT AUTOMATED 278 10*3/uL (130-400); RED BLOOD COUNT 3.96 10*6/uL (4.50-5.90); RED CELL DISTRI WIDTH 17.1 % (0-14.5); WHITE BLOOD COUNT 8.7 10*3/uL (4.8-10.8)
[2019-02-18 20:02] LABS: BUN 17 mg/dl (7-24); CHLORIDE 99 mmol/L (98-107); CREATININE 1.13 mg/dL (0.70-1.30); POTASSIUM 3.9 mmol/L (3.5-5.1); SODIUM 137 mmol/L (136-145)
[2019-02-18 23:21] VITALS: BP 125/71
[2019-02-19] VITALS (7 sets, daily range): BP systolic 123–151; BP diastolic 72–94
[2019-02-19 06:17] LABS: BASO % 0.4 % (0.0-1.0); EOS # 0.2 10*3/uL (0.0-0.4); EOS % 1.8 % (1.0-4.0); HEMATOCRIT 37.7 % (42.0-52.0); HEMOGLOBIN 11.5 g/dl (14.0-18.0); LYMPH # 2.1 10*3/uL (1.3-4.4); LYMPH % 25.5 % (27.0-41.0); MEAN CELL VOLUME 88.5 fl (80.0-94.0); MEAN CORPUSCULAR HGB CONC 30.5 g/dl (33.0-37.0); MEAN PLATELET VOLUME 8.7 fl (9.6-12.3); MONO # 1.4 10*3/uL (0.1-1.0); MONO % 17.2 % (3.0-9.0); NEUT # 4.4 10*3/uL (2.3-7.9); NEUT % 54.6 % (47.0-73.0); PLATELET COUNT AUTOMATED 272 10*3/uL (130-400); RED BLOOD COUNT 4.26 10*6/uL (4.50-5.90); RED CELL DISTRI WIDTH 17.2 % (0-14.5); WHITE BLOOD COUNT 8.1 10*3/uL (4.8-10.8)
[2019-02-19 06:33] LABS: ALBUMIN 1.5 gm/dl (3.1-4.5); ALKALINE PHOSPHATASE 117 U/L (45-117); BUN 15 mg/dl (7-24); CHLORIDE 98 mmol/L (98-107); CREATININE 0.91 mg/dL (0.70-1.30); PHOSPHOROUS 3.2 mg/dL (2.5-4.9); POTASSIUM 3.4 mmol/L (3.5-5.1); SGOT/AST 18 IU/L (3-35); SGPT/ALT 9 U/L (12-78); SODIUM 138 mmol/L (136-145); TOTAL PROTEIN 7.5 gm/dL (6.4-8.2)
[2019-02-19 07:03] LABS: ACT PARTIAL THROMBO TIME 42.4 SECONDS (20.0-32.1); INTERNATIONAL NORM RATIO 2.8 (2.0-3.5)
[2019-02-19 12:25] LABS: INTERNATIONAL NORM RATIO 1.9 (2.0-3.5)
[2019-02-19] MEDS ORDERED: KLONOPIN0.5 MG PO (14:18)
[2019-02-19] MEDS ORDERED: CYMBALTA20 M1 PO (14:26)
[2019-02-19] MEDS ORDERED: DEPAKOTE SPRIN125 MG PO ×2 (14:27→14:39)
[2019-02-19] MEDS ORDERED: FISH OIL CONC1000 M1 PO (14:40)
[2019-02-19] MEDS ORDERED: FUROSEMIDE40 MG PO (14:40)
[2019-02-19] MEDS ORDERED: NAMENDA-28 PO (14:42)
[2019-02-19] MEDS ORDERED: NOVOLOG10 ML SQ (14:42)
[2019-02-19] MEDS ORDERED: K-TAB20 MEQ PO (14:44)
[2019-02-19] MEDS ORDERED: RIVASTIGMINE TAR6 M1 PO (14:45)
[2019-02-19] MEDS ORDERED: VITAMIN D5000 UNI1 PO (14:46)
[2019-02-19] MEDS ORDERED: NOVOLOG100 UNIT/1 SQ (15:26)
[2019-02-20] VITALS: BP 101/60
[2019-02-20 08:00] VITALS: BP 124/60
[2019-02-20 12:00] VITALS: BP 92/50
[2019-02-20 16:00] VITALS: BP 98/55
[2019-02-20 19:31] LABS: BODY FLUID WBC 617 /uL
[2019-02-20 20:00] VITALS: BP 132/75
[2019-02-20 20:26] LABS: BF LYMPHOCYTES 86 %; BF MONOCYTES 9 %; BF NEUTROPHILS 5 %
[2019-02-21] VITALS: BP 124/88
[2019-02-21 06:34] LABS: BASO % 0.1 % (0.0-1.0); EOS % 0.5 % (1.0-4.0); HEMOGLOBIN 11.1 g/dl (14.0-18.0); LYMPH # 1.7 10*3/uL (1.3-4.4); LYMPH % 20.5 % (27.0-41.0); MEAN CELL VOLUME 87.1 fl (80.0-94.0); MEAN CORPUSCULAR HGB 27.6 pg (27.0-31.0); MEAN CORPUSCULAR HGB CONC 31.7 g/dl (33.0-37.0); MEAN PLATELET VOLUME 8.3 fl (9.6-12.3); MONO # 1.4 10*3/uL (0.1-1.0); NEUT # 5.2 10*3/uL (2.3-7.9); NEUT % 61.3 % (47.0-73.0); PLATELET COUNT AUTOMATED 262 10*3/uL (130-400); RED BLOOD COUNT 4.02 10*6/uL (4.50-5.90); RED CELL DISTRI WIDTH 17.1 % (0-14.5); WHITE BLOOD COUNT 8.4 10*3/uL (4.8-10.8)
[2019-02-21 07:04] LABS: ALBUMIN 1.3 gm/dl (3.1-4.5); CREATININE 1.49 mg/dL (0.70-1.30)
[2019-02-21 07:05] LABS: TOTAL PROTEIN 6.5 gm/dL (6.4-8.2)
[2019-02-21 07:12] LABS: INTERNATIONAL NORM RATIO 1.3 (2.0-3.5)
[2019-02-21 08:00] VITALS: BP 123/84
[2019-02-21 12:00] VITALS: BP 130/67
[2019-02-21 15:54] VITALS: BP 112/63
[2019-02-21 15:57] VITALS: BP 115/60
[2019-02-21 20:00] VITALS: BP 117/65
[2019-02-22] VITALS: BP 129/64
[2019-02-22 06:08] LABS: BASO % 0.2 % (0.0-1.0); EOS # 0.2 10*3/uL (0.0-0.4); EOS % 2.1 % (1.0-4.0); HEMATOCRIT 29.5 % (42.0-52.0); HEMOGLOBIN 9.5 g/dl (14.0-18.0); LYMPH # 1.6 10*3/uL (1.3-4.4); LYMPH % 18.2 % (27.0-41.0); MEAN CELL VOLUME 87.3 fl (80.0-94.0); MEAN CORPUSCULAR HGB 28.1 pg (27.0-31.0); MEAN CORPUSCULAR HGB CONC 32.2 g/dl (33.0-37.0); MEAN PLATELET VOLUME 8.5 fl (9.6-12.3); MONO # 1.4 10*3/uL (0.1-1.0); MONO % 16.3 % (3.0-9.0); NEUT # 5.5 10*3/uL (2.3-7.9); NEUT % 62.2 % (47.0-73.0); PLATELET COUNT AUTOMATED 214 10*3/uL (130-400); RED BLOOD COUNT 3.38 10*6/uL (4.50-5.90); RED CELL DISTRI WIDTH 16.8 % (0-14.5); WHITE BLOOD COUNT 8.9 10*3/uL (4.8-10.8)
[2019-02-22 06:26] LABS: BUN 21 mg/dl (7-24); CHLORIDE 100 mmol/L (98-107); CREATININE 1.12 mg/dL (0.70-1.30); POTASSIUM 3.5 mmol/L (3.5-5.1); SODIUM 137 mmol/L (136-145)
[2019-02-22 06:41] LABS: INTERNATIONAL NORM RATIO 1.5 (2.0-3.5)
[2019-02-22 08:00] VITALS: BP 125/60
[2019-02-22 13:55] VITALS: BP 122/72
[2019-02-22 16:20] VITALS: BP 122/56
[2019-02-22 20:00] VITALS: BP 105/45
[2019-02-23] VITALS: BP 108/55
[2019-02-23 06:29] LABS: BASO % 0.4 % (0.0-1.0); EOS # 0.2 10*3/uL (0.0-0.4); HEMATOCRIT 33.5 % (42.0-52.0); HEMOGLOBIN 10.5 g/dl (14.0-18.0); LYMPH # 1.9 10*3/uL (1.3-4.4); LYMPH % 22.5 % (27.0-41.0); MEAN CELL VOLUME 88.4 fl (80.0-94.0); MEAN CORPUSCULAR HGB 27.7 pg (27.0-31.0); MEAN CORPUSCULAR HGB CONC 31.3 g/dl (33.0-37.0); MEAN PLATELET VOLUME 8.7 fl (9.6-12.3); MONO # 1.2 10*3/uL (0.1-1.0); MONO % 13.9 % (3.0-9.0); NEUT # 5.1 10*3/uL (2.3-7.9); NEUT % 59.8 % (47.0-73.0); PLATELET COUNT AUTOMATED 261 10*3/uL (130-400); RED BLOOD COUNT 3.79 10*6/uL (4.50-5.90); RED CELL DISTRI WIDTH 16.7 % (0-14.5); WHITE BLOOD COUNT 8.5 10*3/uL (4.8-10.8)
[2019-02-23 06:41] LABS: BUN 17 mg/dl (7-24); CHLORIDE 98 mmol/L (98-107); POTASSIUM 3.6 mmol/L (3.5-5.1); SODIUM 136 mmol/L (136-145)
[2019-02-23 07:05] LABS: INTERNATIONAL NORM RATIO 1.9 (2.0-3.5)
[2019-02-23 08:00] VITALS: BP 112/56
[2019-02-23 12:00] VITALS: BP 117/68
[2019-02-23 16:00] VITALS: BP 116/66
[2019-02-23 20:00] VITALS: BP 138/63
[2019-02-24] VITALS: BP 144/70
[2019-02-24 06:24] LABS: HEMATOCRIT 32.2 % (42.0-52.0); HEMOGLOBIN 10.1 g/dl (14.0-18.0); MEAN CELL VOLUME 87.3 fl (80.0-94.0); MEAN CORPUSCULAR HGB 27.4 pg (27.0-31.0); MEAN CORPUSCULAR HGB CONC 31.4 g/dl (33.0-37.0); MEAN PLATELET VOLUME 8.6 fl (9.6-12.3); PLATELET COUNT AUTOMATED 275 10*3/uL (130-400); RED BLOOD COUNT 3.69 10*6/uL (4.50-5.90)
[2019-02-24 06:35] LABS: INTERNATIONAL NORM RATIO 2.8 (2.0-3.5)
[2019-02-24 06:37] LABS: BUN 15 mg/dl (7-24); CHLORIDE 99 mmol/L (98-107); CREATININE 0.99 mg/dL (0.70-1.30); POTASSIUM 3.2 mmol/L (3.5-5.1); SODIUM 137 mmol/L (136-145)
[2019-02-24 06:52] LABS: TOTAL CELLS COUNTED 100 #CELLS
[2019-02-24 06:53] LABS: ACANTHOCYTES FEW; OVALOCYTES FEW; PLATELET SUFFICIENCY NORMAL (NORMAL); POLYCHROMASIA SLIGHT; SCHISTOCYTES FEW
[2019-02-24 08:00] VITALS: BP 117/72
[2019-02-24 12:00] VITALS: BP 98/60
[2019-02-24 16:00] VITALS: BP 96/52
[2019-02-24 20:00] VITALS: BP 128/64
[2019-02-25] VITALS: BP 120/51
[2019-02-25 04:00] VITALS: BP 118/76
[2019-02-25 06:40] LABS: HEMATOCRIT 35.2 % (42.0-52.0); MEAN CELL VOLUME 89.1 fl (80.0-94.0); MEAN CORPUSCULAR HGB 27.8 pg (27.0-31.0); MEAN CORPUSCULAR HGB CONC 31.3 g/dl (33.0-37.0); MEAN PLATELET VOLUME 8.5 fl (9.6-12.3); PLATELET COUNT AUTOMATED 308 10*3/uL (130-400); RED BLOOD COUNT 3.95 10*6/uL (4.50-5.90); RED CELL DISTRI WIDTH 17.4 % (0-14.5); WHITE BLOOD COUNT 16.5 10*3/uL (4.8-10.8)
[2019-02-25 06:52] LABS: BUN 17 mg/dl (7-24); CHLORIDE 99 mmol/L (98-107); CREATININE 1.23 mg/dL (0.70-1.30); POTASSIUM 3.3 mmol/L (3.5-5.1); SODIUM 141 mmol/L (136-145)
[2019-02-25 07:12] LABS: INTERNATIONAL NORM RATIO 2.9 (2.0-3.5)
[2019-02-25 07:38] LABS: BURR CELLS MODERATE; PLATELET SUFFICIENCY NORMAL (NORMAL); TOTAL CELLS COUNTED 100 #CELLS
[2019-02-25 08:00] VITALS: BP 111/70
[2019-02-25 12:00] VITALS: BP 115/65
== END 2019-02-25 16:08 | disposition hospice, home (50) | DRG 186 ==
LOC: ED 19:19 → 4E 02-19 00:19 → EDHOLD 02-19 00:19 → 4E 02-19 10:22
PROVIDERS: Emergency Medicine Emergency Medical Services; Family Medicine; Internal Medicine; ADMIT Internal Medicine
PROC: 0W9B30Z Drainage of Left Pleural Cavity with Drainage Device, Percutaneous Approach (ICD-10-PCS; principal; 2019-02-20)
PROC: BD1BYZZ Fluoroscopy of Mouth/Oropharynx using Other Contrast (ICD-10-PCS; 2019-02-24)
DX: J90 Pleural effusion, not elsewhere classified (principal); J96.01 Acute respiratory failure with hypoxia; N17.9 Acute kidney failure, unspecified; I44.2 Atrioventricular block, complete; J98.11 Atelectasis; D68.69 Other thrombophilia; J93.9 Pneumothorax, unspecified; F41.9 Anxiety disorder, unspecified; E83.51 Hypocalcemia; I48.0 Paroxysmal atrial fibrillation; I25.10 Atherosclerotic heart disease of native coronary artery without angina pectoris; E78.00 Pure hypercholesterolemia, unspecified; N40.0 Benign prostatic hyperplasia without lower urinary tract symptoms; G89.29 Other chronic pain; M16.0 Bilateral primary osteoarthritis of hip; K40.90 Unilateral inguinal hernia, without obstruction or gangrene, not specified as recurrent; D72.829 Elevated white blood cell count, unspecified; R13.12 Dysphagia, oropharyngeal phase; M17.11 Unilateral primary osteoarthritis, right knee; Z66 Do not resuscitate; Z51.5 Encounter for palliative care; E78.5 Hyperlipidemia, unspecified; G30.9 Alzheimer's disease, unspecified; F02.80 Dementia in other diseases classified elsewhere, unspecified severity, without behavioral disturbance, psychotic disturbance, mood disturbance, and anxiety; R29.6 Repeated falls; E11.40 Type 2 diabetes mellitus with diabetic neuropathy, unspecified; E03.9 Hypothyroidism, unspecified; T45.515A Adverse effect of anticoagulants, initial encounter; Y92.89 Other specified places as the place of occurrence of the external cause; Z88.1 Allergy status to other antibiotic agents; Z88.2 Allergy status to sulfonamides; Z91.81 History of falling; Z82.49 Family history of ischemic heart disease and other diseases of the circulatory system; Z80.3 Family history of malignant neoplasm of breast; Z87.440 Personal history of urinary (tract) infections; Z79.899 Other long term (current) drug therapy; Z79.01 Long term (current) use of anticoagulants; Z79.4 Long term (current) use of insulin

== ENCOUNTER 2019-02-25 16:21 | Inpatient (IN) | payer OTHER, MEDICARE ==
[~2019-02-25] VITALS: Ht 190.5 cm; Wt 93.9 kg
[2019-02-25 16:00] VITALS: BP 119/62
[~2019-02-25 16:21] MED LIST changes: +CYMBALTA20 M1 PO; +DEPAKOTE SPRIN125 MG PO; +FISH OIL CONC1000 M1 PO; +K-TAB20 MEQ PO; +KLONOPIN0.5 MG PO; +NAMENDA-28 PO; +NOVOLOG10 ML SQ; +NOVOLOG100 UNIT/1 SQ; +RIVASTIGMINE TAR6 M1 PO; +VITAMIN D5000 UNI1 PO
--- NOTE | 2019-02-25 16:30 | NUR ---
Time: 1629 A 89 year old MALE admitted to under services of KRYSTLE CHERRY DO. Pt. arrived via OTHER from [place]. Chief complaint: CHF, INPT HOSPICE. [facility]
[2019-02-25 20:00] VITALS: BP 130/76
[2019-02-26] VITALS: BP 133/81
--- NOTE | 2019-02-26 04:00 | NUR ---
PATIENT RESTING COMFORTABLY. NO SIGNS OF DISTRESS AT THIS TIME. BED IN LOWEST POSITION, BED ALARM ON. WILL CONTINUE TO MONITOR.
[2019-02-26 08:00] VITALS: BP 120/75
--- NOTE | 2019-02-26 11:41 | NUR ---
FAMILY AT BEDSIDE. PT RESTING COMFORTABLY. WILL MONITOR
[2019-02-26 12:00] VITALS: BP 120/75
--- NOTE | 2019-02-26 14:56 | NUR ---
[facility] IN TO SEE PT.
[2019-02-26 16:00] VITALS: BP 119/66
--- NOTE | 2019-02-26 16:32 | NUR ---
FAMILY REQUESTED IV ATIVAN PT IS "MOVING HANDS ALOT" ATIVAN GIVE. WILL MONITOR
--- NOTE | 2019-02-26 18:08 | NUR ---
PT RESTING EASY, NO DISTRESS NOTED. WILL MONITOR
[2019-02-26 20:00] VITALS: BP 114/53
--- NOTE | 2019-02-26 22:37 | NUR ---
PATIENT RESTING COMFORTABLY WITH IN ROOM. NO SIGNS OF DISTRESS AT THIS TIME. RESPIRATIONS EASY NONLABORED. ATROPINE DROPS GIVEN AT THIS TIME. WILL CONTINUE TO MONITOR.
[2019-02-27] VITALS: BP 119/62
[2019-02-27 08:00] VITALS: BP 138/73
--- NOTE | 2019-02-27 11:50 | NUR ---
PT RESTING COMFORTABLY . MORPHINE ADMINISTERRED PER ORDER FOR COMFORT CARE. FAMILY AT BEDSIDE. NO NEW ISUES.
[2019-02-27 12:00] VITALS: BP 130/52
[2019-02-27 16:00] VITALS: BP 101/53
--- NOTE | 2019-02-27 19:00 | NUR ---
PT RESTING QUIETLY IN BED W/EYES CLOSED W/FAMILY AT BEDSIDE. NO S/S OF DISTRESS NOTED. WILL MONITOR.
[2019-02-27 20:00] VITALS: BP 99/56
--- NOTE | 2019-02-27 22:55 | NUR ---
PT MEDICATED W/MORPHINE PO D/T PT BECOMING RESTLESS AND MOANING. REMAINS AT BEDSIDE. PT REPOSITIONED FOR COMFORT. WILL CONTINUE TO MONITOR.
[2019-02-28] VITALS: BP 124/48
--- NOTE | 2019-02-28 01:48 | NUR ---
[facility] NURSE PHONED IN FOR PT UPDATE. UPDATE GIVEN. A HOSPICE NURSE TO BE IN TO SEE PT AFTER 0800 TODAY. NO NEW NEEDS/CONCERNS AT THIS TIME.
--- NOTE | 2019-02-28 02:33 | NUR ---
PT RESTING QUIETLY IN BED. NO S/S OF DISTRESS NOTED.
--- NOTE | 2019-02-28 03:43 | NUR ---
PT BECOMING RESTLESS. TACHYPNEA AND TACHYCARDIA NOTED. MEDICATED W/MORPHINE PO.
[2019-02-28 08:00] VITALS: BP 118/57
--- NOTE | 2019-02-28 08:00 | NUR ---
GIVEN ORAL MORPHINE PER FAMILY REQUEST, STATES PT APPEARS MILDLY RESTLESS AND UNCOMFORTABLE.
--- NOTE | 2019-02-28 08:30 | NUR ---
PT'S TEMP INITIALLY WAS 100.4, FAMILY REFUSED TURNING FOR SUPPOSITORY AT THIS TIME. WILL RECHECK TEMP.
--- NOTE | 2019-02-28 09:00 | NUR ---
PT RESTING MORE COMFORTABLY, EARLIER MORPHINE EFFECTIVE.
--- NOTE | 2019-02-28 09:00 | NUR ---
TEMP RECHECKED-99.2 WITH MEDICATION.
[2019-02-28 12:00] VITALS: BP 90/49
--- NOTE | 2019-02-28 13:00 | NUR ---
REPOSITIONED PATIENT FOR COMFORT. FAMILY AT BEDSIDE.
--- NOTE | 2019-02-28 13:10 | NUR ---
MEDICATED WITH ORAL MORPHINE PER PRN ORDER FOR RESTLESSNESS. WILL MONITOR FOR EFFECTIVENESS.
--- NOTE | 2019-02-28 14:10 | NUR ---
GIVEN ATROPINE DROPS AT THIS TIME FOR MOIST SECRETIONS.
--- NOTE | 2019-02-28 14:47 | NUR ---
PT RESTING COMFORTABLY AT THIS TIME, FAMILY AT BEDSIDE.
--- NOTE | 2019-02-28 15:00 | NUR ---
PT RESTING QUIETLY IN BED W/ AT BEDSIDE DURING BEDSIDE SHIFT REPORT. NO S/S OF DISTRESS NOTED. BED IN LOW POSITION W/WHEELS LOCKED AND ALARM ON.
[2019-02-28 16:00] VITALS: BP 91/46
[2019-02-28 20:00] VITALS: BP 92/46
--- NOTE | 2019-02-28 20:25 | NUR ---
PT MEDICATED W/MORPHINE PO FOR S/S OF DISCOMFORT AND TYLENOL SUPPOSITORY FOR ELEVATED TEMP. PT REPOSITIONED FOR COMFORT. FAMILY REMAINS AT BEDSIDE.
[2019-03-01] VITALS: BP 92/35
--- NOTE | 2019-03-01 03:45 | NUR ---
PT MOANING, MOUTH CARE GIVEN AND MEDICATED W/MORPHINE PO. REMAINS AT BEDSIDE. WILL CONTINUE TO MONITOR.
[2019-03-01 08:19] VITALS: BP 93/43
--- NOTE | 2019-03-01 09:53 | NUR ---
PT MEDICATED WITH PO MORPHINE ORDERED FOR SIGNS/SYMPTOMS OF AGITATION & DISCOMFORT. FAMILY IS AT THE BEDSIDE AT THIS TIME. WILL CONTINUE TO MONITOR PT.
--- NOTE | 2019-03-01 10:30 | NUR ---
PT IS RESTING IN BED AT THIS TIME WITH NO OBVIOUS SIGNS/SYMPTOMS OF PAIN OR DISCOMFORT. PO MORPHINE SEEMS TO HAVE BEEN EFFECTIVE. FAMILY IS AT THE BEDSIDE. THEY VOICE NO NEEDS OR CONCERNS AT THIS TIME. WILL CONTINUE TO MONITOR PT FREQUENTLY.
--- NOTE | 2019-03-01 12:00 | NUR ---
HOSPICE NURSE IN TO SEE PATIENT.
[2019-03-01 12:04] VITALS: BP 89/39
--- NOTE | 2019-03-01 12:58 | NUR ---
PT MEDICATED WITH TYLENOL SUPPOSITORY FOR ELEVATED TEMPERATURE. WILL CONTINUE TO MONITOR PT & REASSESS VITAL SIGNS.
--- NOTE | 2019-03-01 14:19 | NUR ---
PT MEDICATED WITH IV ATIVAN ORDERED BY REQUEST OF FAMILY FOR AGITATION. WILL MONITOR FOR EFFECTIVENESS OF MED.
[2019-03-01 16:03] VITALS: BP 84/47
[2019-03-01 20:00] VITALS: BP 86/43
--- NOTE | 2019-03-01 20:43 | NUR ---
HOSPICE NURSE IN TO SEE PT. LABORED RESPS NOTED. SKIN PALE/WARM/DIAPHORETIC. COLD WASHCLOTH APPLIED TO FOREHEAD. PT MEDICATED W/MORPHINE PO AND TYLENOL SUPPOSITORY. FAMILY AT BEDSIDE. WILL MONITOR.
--- NOTE | 2019-03-01 21:30 | NUR ---
BED LINENS CHANGED AT THIS TIME AND PT REPOSITIONED FOR COMFORT. MOUTH CARE GIVEN. PT MEDICATED W/ATROPINE GTTS FOR MOIST RESPIRATIONS. WILL MONITOR CLOSELY.
--- NOTE | 2019-03-01 21:47 | NUR ---
PT RESTLESS AND MOANING. IVP ATIVAN GIVEN AT THIS TIME. REMAINS AT BEDSIDE. WILL CONTINUE TO MONITOR.
[2019-03-02] VITALS: BP 86/39
--- NOTE | 2019-03-02 | NUR ---
PT RESTING QUIETLY IN BED. NO S/S OF DISTRESS NOTED. REMAINS AT BEDSIDE.
[2019-03-02 08:00] VITALS: BP 63/17
[2019-03-02 12:00] VITALS: BP 60/32
--- NOTE | 2019-03-02 13:05 | NUR ---
PATIENT ABSENT OF ALL VITAL SIGNS, CONFRIMED BY ANOTHER RN LUIS ALBERTO QUINN, DR.CORY ROE AND NOTIFIED. FAMILY AT BEDSIDE
--- NOTE | 2019-03-02 13:10 | NUR ---
ONE CALL NOTIFIED OK TO RELEASE BODY TO HOME
--- NOTE | 2019-03-02 15:35 | NUR ---
[facility] HOME NOTIFIED
--- NOTE | 2019-03-02 16:07 | NUR ---
BODY RELEASE TO [facility] HOME
== END 2019-03-02 16:07 | disposition expired | DRG 951 ==
LOC: 4E 16:21
PROVIDERS: ADMIT Internal Medicine
DX: Z51.5 Encounter for palliative care (principal); J90 Pleural effusion, not elsewhere classified; I44.2 Atrioventricular block, complete; E83.51 Hypocalcemia; R79.1 Abnormal coagulation profile; R13.10 Dysphagia, unspecified; E03.9 Hypothyroidism, unspecified; I25.10 Atherosclerotic heart disease of native coronary artery without angina pectoris; E11.42 Type 2 diabetes mellitus with diabetic polyneuropathy; R26.2 Difficulty in walking, not elsewhere classified; N40.0 Benign prostatic hyperplasia without lower urinary tract symptoms; E78.5 Hyperlipidemia, unspecified; F41.9 Anxiety disorder, unspecified; I48.2 Chronic atrial fibrillation; G30.1 Alzheimer's disease with late onset; F02.80 Dementia in other diseases classified elsewhere, unspecified severity, without behavioral disturbance, psychotic disturbance, mood disturbance, and anxiety